=== PATIENT | female | born 1985 | race African-American/Black ===

== ENCOUNTER 2024-12-25 13:50 | Emergency (ER) | payer MEDICAID ==
[~2024-12-25] VITALS: Ht 167.6 cm; Wt 109.0 kg
[2024-12-25 13:57] VITALS: O2SAT 98
[2024-12-25 14:38] LABS: HEMATOCRIT. 37.8 % (36.0-48.0); HEMOGLOBIN. 12.4 g/dL (12.0-16.0); MEAN PLATELET VOLUME 9.6 fl (7.4-10.4); PLATELET 294 x1000/uL (130-400); RED BLOOD CELL COUNT 4.52 mill/uL (4.2-5.4); RED CELL DISTRIBUTION WIDTH 15.5 % (11.6-14.6)
[2024-12-25 14:48] LABS: HCG SCREEN NEGATIVE
[2024-12-25 14:51] LABS: CREATININE 1.1 mg/dL (0.6-1.0)
[2024-12-25 14:52] LABS: UREA NITROGEN BLOOD 11 mg/dL (9-23)
[2024-12-25 14:53] LABS: ASPARTATE AMINOTRANSFERASE 14 IU/L (<34); EOSINOPHILS % MANUAL 4.0 % (0.0-5.0); LYMPHOCYTES % MANUAL 29.0 % (20.0-60.0); MONOCYTES % MANUAL 5.0 % (2.0-8.0); NEUTROPHILS % MANUAL 62.0 % (45.0-75.0); PLATELET ESTIMATE NORMAL
[2024-12-25 14:54] LABS: BILIRUBIN DIRECT 0.3 mg/dL (<=3.0); BILIRUBIN TOTAL 0.8 mg/dL (0.1-1.0); PROTEIN TOTAL 7.0 g/dL (6.0-8.3)
[2024-12-25 17:35] VITALS: BP 138/95; PULSE 78; RESP 18; TEMP 36.6; O2SAT 100
[2024-12-25 17:43] VITALS: TEMP 97.9
[2024-12-25] MEDS: ACETAMINOPHEN 325MG TABLET PO ONE (17:43)
== END 2024-12-25 17:50 | disposition home or self-care (01) ==
LOC: ER 13:50 → CANBEDREQ 17:50 → ER 17:50
DX: R56.9 Unspecified convulsions (principal); R41.82 Altered mental status, unspecified; Z79.899 Other long term (current) drug therapy
CPT/HCPCS: 80076; 80048; 80320; 84703; 83690; 83735; 85025; 36415; 70450; 99285; Z7610; A4606; G0480